=== PATIENT | male | born 1960 | race Caucasian/White ===

== ENCOUNTER 2018-04-25 08:47 | Emergency (ER) | payer OTHER ==
[~2018-04-25] VITALS: Ht 172.7 cm; Wt 102.3 kg
[~2018-04-25 08:47] MED LIST: BUTA1CAP8 PO; CABE0.5T PO; CHOL500045 PO; CINN500C2 PO; DIAZ5TAB4 PO; FENO160T PO; FLAX100029 PO; FLUO40CA9 PO; LISI1TAB7 PO; METO50TA82 PO; NIAC500T9 PO; OMEG500C3 PO; PANT40TA3 PO; PROM25TA10 PO; TEST30SO INJ
[2018-04-25] MEDS ORDERED: ATOR-2 PO (09:19)
[2018-04-25] MEDS ORDERED: SPIR25TA5 PO (09:20)
[2018-04-25] MEDS ORDERED: EZET10TA18 PO (09:20)
[2018-04-25] MEDS ORDERED: ACYC-114 PO (09:21)
[2018-04-25] MEDS ORDERED: BUTA1CAP30 PO (09:28)
[2018-04-25] MEDS ORDERED: GLUC1TAB55 PO (09:29)
[2018-04-25] MEDS ORDERED: ASPI-515 PO (09:29)
[2018-04-25] MEDS ORDERED: HYDROcodone/APAP 5/325 TABLET PO ONE (09:30)
[2018-04-25] MEDS ORDERED: HYDROcodone/APAP 5/325 TABLET ONE (09:32)
[2018-04-25] MEDS ORDERED: LIDOCAINE-MPF 1%, 5ML ONE (10:19)
[2018-04-25 11:04] VITALS: BP 115/60
== END 2018-04-25 11:20 | disposition home or self-care (01) ==
LOC: ED 10:55
DX: S62.651A Nondisplaced fracture of middle phalanx of left index finger, initial encounter for closed fracture (principal); I10 Essential (primary) hypertension; E78.00 Pure hypercholesterolemia, unspecified; I25.2 Old myocardial infarction; X58.XXXA Exposure to other specified factors, initial encounter; Y93.89 Activity, other specified; Y99.0 Civilian activity done for income or pay; Y92.69 Other specified industrial and construction area as the place of occurrence of the external cause
CPT/HCPCS: 29130; 99284